=== PATIENT | female | born 1950 | race Caucasian/White ===

== ENCOUNTER → 2019-04-06 | Outpatient (CLI) | payer BC, MEDICARE ==
[~2019-04-06] MED LIST: AUGMENTIN 500-1 EACH PO; CENTANY30 GM TP; CIPROFLOXIN HC2.5 M1 OPHTHALMIC; CRANBERRY400 M1 PO; DOXYCYCLINE 10100 MG PO; FLEXERIL; LASIX 40 MG TAB40 M2; LIPITOR 20 MG T20 M1 PO; MACROBID 100 M100 M1 PO; NORCO 5-325 TA1 EACH PO; OXYBUTYNIN 5 MG5 M2 PO; POTASSIUM20; TEMAZEPAM15 MG; TRAZODONE 150150 M1 PO; VALIUM5 MG PO
== END ==
LOC: M.RAD 14:32
DX: M77.32 Calcaneal spur, left foot (principal)

== ENCOUNTER 2019-10-16 23:53 | Emergency (ER) | payer BC, MEDICARE ==
[~2019-10-16] VITALS: Ht 160 cm; Wt 72.6 kg
[2019-10-17] MEDS ORDERED: BUSPAR (00:41)
[2019-10-17] MEDS ORDERED: HYDROCODON-ACE1 EAC7 (00:42)
[2019-10-17] MEDS ORDERED: PRILOSEC OTC20 MG (00:42)
[2019-10-17] MEDS ORDERED: SERTRALINE (00:43)
[2019-10-17] MEDS ORDERED: ALL DAY ALLERGY10 M3 (00:44)
[2019-10-17] MEDS ORDERED: DICLOFENAC (00:44)
[2019-10-17] MEDS ORDERED: AZO1 EACH (00:45)
[2019-10-17] MEDS ORDERED: MUCINEX1200 MG (00:45)
[2019-10-17] MEDS ORDERED: MIRALAX119 GM (00:45)
[2019-10-17 00:50] LABS: URINE BILIRUBIN NEGATIVE (Negative); URINE BLOOD TRACE (Negative); URINE CLARITY CLEAR; URINE COLOR YELLOW; URINE GLUCOSE-RANDOM NEGATIVE (Negative); URINE KETONES NEGATIVE (Negative); URINE LEUKOCYTES-REFLEX 1+ (Negative); URINE NITRITE-REFLEX NEGATIVE (Negative); URINE PROTEIN NEGATIVE (Negative); URINE SPECIFIC GRAVITY >= 1.030 (1.005-1.030); URINE UROBILINOGEN 0.2 E.U./dl (0.2-1.0)
[2019-10-17 01:07] LABS: BACTERIA-REFLEX >30 Many /HPF (None Seen); CASTS None Seen /LPF (None Seen); CRYSTALS None Seen /LPF (None Seen); MUCUS 0-3 Light strn/LPF (None Seen); SQUAMOUS 0-3 Few /LPF (0-3); URINE RBC 3-10 Few /HPF (0-2); URINE WBC-REFLEX >25 Many /HPF (0-5); WBC CLUMPS Moderate (None Seen)
[2019-10-17 01:16] LABS: ABSOLUTE EOSINOPHILS 0.1 thou/uL (0.0-0.7); ABSOLUTE LYMPHOCYTES 2.4 thou/uL (0.8-5.3); ABSOLUTE MONOCYTES 0.5 thou/uL (0.0-1.2); ABSOLUTE NEUTROPHILS 3.3 thou/uL (1.6-8.1); BASOPHILS 0.6 %; EOSINOPHILS 1.2 %; HEMATOCRIT 38.2 % (37.0-47.0); HEMOGLOBIN 12.8 gm/dL (12.0-15.0); LYMPHOCYTES 37.4 %; MCH 28.9 pg (26.0-34.0); MCHC 33.5 g/dL (28.0-37.0); MCV 86.2 fL (80.0-100.0); MONOCYTES 8.4 %; NUCLEATED RBCS 0 /100WBC; PLATELET COUNT* 256 thou/uL (150-400); POLYS 52.4 %; RBC 4.43 mil/uL (4.20-5.00); WBC 6.3 thou/uL (4.0-11.0)
[2019-10-17 01:29] LABS: CALCIUM 8.7 mg/dL (8.5-10.1); POTASSIUM 3.5 mmol/L (3.5-5.1)
[2019-10-17 01:32] LABS: PROTIME 10.8 Seconds (9.20-11.50)
[2019-10-17 01:39] LABS: ALBUMIN 3.7 g/dL (3.4-5.0); MAGNESIUM 2.1 mg/dL (1.8-2.4); TOTAL BILIRUBIN 0.5 mg/dL (<0.1-1.0); TOTAL PROTEIN 6.7 g/dL (6.4-8.2)
[2019-10-17] MEDS ORDERED: CEFDINIR300 MG PO (03:01)
[2019-10-17 03:25] VITALS: BP 130/70
--- NOTE | 2019-10-17 12:40 | EKG ---
[place] [address] ELECTROCARDIOGRAM REPORT Name: LEA CUNNINGHAM Room: [facility]#: [id number] Admission: 10/16/19 Attend Phys: Discharge: 10/17/19 Date of : 48 Date of Service: 10/17/19 0101 Report #: [id number] THIS REPORT FOR: //name// [facility] ED Test Date: 2019-10-17 Test Time: 01:01:11 Pat Name: LEA CUNNINGHAM Department: Room: Gender: F Cinema Operator: LAURA : 1950 Requested By: Aurelia Bueno Order Number: [id number] MD: Patrick Mitchell Measurements Intervals [place] Rate: 64 P: 45 VA: 175 QRS: -20 QRSD: 104 T: 68 QT: 415 QTc: 428 Interpretive Statements Sinus arrhythmia Borderline left axis deviation No previous ECG available for comparison Electronically Signed On 10-17-2019 12:40:38 CDT by Patrick Mitchell [email or web address] <ELECTRONICALLY SIGNED> By: Patrick Mitchell MD, [facility] 10/17/19 1240 0 0 Patrick Mitchell MD, FAC /EPI
== END 2019-10-17 03:27 | disposition home or self-care (01) ==
LOC: M.ERS 23:53
PROVIDERS: Emergency Medicine
DX: N39.0 Urinary tract infection, site not specified (principal); Z88.2 Allergy status to sulfonamides; Z88.5 Allergy status to narcotic agent; Z88.8 Allergy status to other drugs, medicaments and biological substances; Z88.1 Allergy status to other antibiotic agents; Z90.710 Acquired absence of both cervix and uterus